=== PATIENT | female | born 1960 | race Caucasian/White ===

== ENCOUNTER 2019-03-17 06:15 | Day surgery (SDC) | payer OTHER ==
[~2019-03-17 06:15] MED LIST: AVAPRO300 MG PO; MULTIPLE VITAM1 EACH PO; VASOFLEX D1 CA1 EACH PO
== END 2019-03-17 21:15 | disposition home or self-care (01) ==
LOC: CIR.AMB 06:15 → EDBD 13:45 → CIR.AMB 13:45
DX: N95.0 Postmenopausal bleeding (principal)

== ENCOUNTER 2019-07-29 11:15 | Inpatient (IN) | payer OTHER ==
[~2019-07-29] VITALS: Ht 165.1 cm; Wt 134.7 kg
== END 2019-08-07 11:47 | disposition home or self-care (01) | DRG 743 ==
LOC: SURH 08-04 07:30 → O/R 08-04 10:21 → OB/GYN 08-04 10:21 → O/R 08-04 11:15 → SURH 08-04 11:15 → OB/GYN 08-04 16:51
PROVIDERS: ADMIT Obstetrics & Gynecology
PROC: 0UB70ZZ Excision of Bilateral Fallopian Tubes, Open Approach (ICD-10-PCS; 2019-08-04)
PROC: 0UT90ZL Resection of Uterus, Supracervical, Open Approach (ICD-10-PCS; principal; 2019-08-04 07:30)
DX: D25.1 Intramural leiomyoma of uterus (principal); D25.0 Submucous leiomyoma of uterus; D25.2 Subserosal leiomyoma of uterus; N84.0 Polyp of corpus uteri; N88.8 Other specified noninflammatory disorders of cervix uteri; N84.1 Polyp of cervix uteri; K29.60 Other gastritis without bleeding